=== PATIENT | female | born 1950 | race Two or more races ===

== ENCOUNTER 2023-11-14 08:44 | Emergency (ER) | payer OTHER, SELFPAY ==
[2023-11-14 08:57] VITALS: BP 110/59
--- NOTE | 2023-11-14 09:55 | ED.GENMED ---
History of Present Illness
General
Chief Complaint: Abnormal Lab Value
Source: patient
Exam Limitations: none
Time Seen by Provider: 11/14/23 09:46
Nursing documentation reviewed up to this point in time: agreed with
History of Present Illness
History of Present Illness:
Patient is a 73-year-old female who presents to the ER for evaluation. Patient reports several weeks ago she had urinary tract infection symptoms and went to family doctor was put on an antibiotic. Symptoms then came back in 1 week ago she went to
urgent care and was put on additional antibiotic, Macrobid and finished that Thursday, 3 days ago today she does complain of burning with urination and blood in her urine. She denies any abdominal pain. She denies any back pain. She denies any
nausea vomiting fever chills.
No prior history of kidney stone.
She is not on blood thinners.
Review of Systems
Review of Systems
Allergies reviewed?: Yes
All Other Systems: ROS reviewed and negative except as documented in HPI and ROS
Constitutional: Reports no symptoms; Denies fever, fatigue or chills
Respiratory: Reports no symptoms
Cardiac: Reports no symptoms
ABD/GI: Denies abdominal pain, nausea, vomiting or diarrhea
: Reports dysuria and bleeding; Denies urgency
Musculoskeletal: Reports no symptoms; Denies back pain
Skin: Reports no symptoms
Neurological: Reports no symptoms
Psychiatric: Reports no symptoms
Phy Exam
General Physical Exam
General Presentation: no apparent distress
General age: appears stated age
General Skin: warm and dry
General Habitus: normal
General Mental: alert
General Hydration: appears well hydrated
ENT Exam
ENT Exam: EOMI
Gastrointestinal Exam
Gastrointestinal Exam: normal bowel sounds, non tender and soft
Neurological Exam
Neurological Exam: alert and oriented x3
Musculoskeletal Exam
Musculoskeletal Exam: full ROM and other (no cva tenderness)
Skin Exam
Skin Exam: normal color and warm/dry
Psychiatric Exam
Psychiatric Exam: normal mood/affect
Course
Orders/Labs/Results
Orders:
Orders
11/14/23 09:37
Urinalysis Reflex To Culture Urgent
Date Specimen was Collected: 11/14/23
Time Specimen was Collected: 09:34
Urine Microscopic Reflex Cult Urgent
Urine Culture Urgent
ALTHEA Source: U
Specimen Description:
Date Specimen was Collected: 11/14/23
Time Specimen was Collected: 09:34
11/14/23 10:01
IV Insert/Care/Rem.- Treatment PRN
11/14/23 10:15
Complete Blood Count/With Diff Urgent
Comprehensive Metabolic Panel Urgent
11/14/23 10:40
Renal & Bladder US [US Renal With Bladder] Urgent
Comment:
Reason For Exam: hematuria persistent
11/14/23 12:59
Cefdinir [Omnicef] 300 mg PO NOW STA
Abnormal Lab Results
11/14/23 11/14/23
09:37 10:15
Glucose 143 H mg/dl
(70-99)
Urine Ketones 1+ A
(Negative)
Ur Occult Blood Reflex 4+ A
(Negative)
Urine Nitrite (Reflex) Positive A
(Negative)
Urine Bilirubin 1+ A
(Negative)
Urine Urobilinogen 2+ A
(Neg - 1+)
Leukocyte Esterase Rfl 2+ A
(Negative)
Urine RBC >100 A /HPF
(0-2)
Urine WBC (Reflex) >100 A /HPF
(0-5)
Urine Bacteria (Reflex) Many A
(Negative)
Urine Albumin (Reflex) 3+ A
(Neg - Trace)
11/14/23 10:15
11/14/23 10:15
Vital Signs
Initial and Last Documented VS:
Initial Vital Signs
Temp Pulse Resp BP Pulse Ox
97.5 F 89 18 110/59 97
11/14/23 08:57 11/14/23 08:57 11/14/23 08:57 11/14/23 08:57 11/14/23 08:57
Last Documented Vital Signs
Temp Pulse Resp BP Pulse Ox
98.7 F 84 16 115/64 95
11/14/23 10:27 11/14/23 10:27 11/14/23 10:27 11/14/23 10:27 11/14/23 10:27
MDM/Problems Addressed
Differential Diagnosis Includes:
not limited to UTI
MDM/Problems Addressed:
Patient is a 73-year-old female with persistent dysuria and blood in urine. She was initially on antibiotic prescribed at PCP and then completed Macrobid on Thursday by urgent care. Patient with obvious RBCs and white blood cells in urine along
with nitrates. Ultrasound done does show small bit of echogenic debris within the bladder could represent blood products or hematoma no internal color flow. There is no post residual.
Patient has no back pain does not present like a stone no fever and normal white count. Patient is not on blood thinners. Will treat with cefdinir however with persistent symptoms and hematuria along with white blood cells in urine we will
recommend outpatient referral to urology. I did review this both with patient and .
*Critical Care Note
Total Time (30-74mins, 75-104mins- exclusive of procedures): Not Applicable
ED Attending Note
-
Portions of this chart may have been created with voice recognition software.� Occasional wrong word or��sound alike� substitutions may have occurred due to the inherent limitations of voice recognition software.
Discharge Plan
Departure
Patient Disposition: Home (Routine Discharge)
Date of Disposition: 11/14/23
Time of Disposition: 13:02
Patient with high blood pressure during this ER visit?: No
Condition: Fair
Covid-19: Not Applicable
Discharge Problem:
Acute UTI
Instructions: Urinary Tract Infection, Adult ED
Prescriptions:
New
cefdinir 300 mg capsule
300 mg PO BID Qty: 20 0RF
Referrals:
Dannie Potts MD [Active] -
Leela Olsen MD [Family Provider] -
Activity Restrictions/Additional Instructions:
As discussed a new prescription was sent to your pharmacy for antibiotic take as directed for urinary tract infection. Please call urology Thursday morning for an appointment in the next several days, as soon as possible. Stay well-hydrated. Return
if any worsening of symptoms including abdominal pain nausea vomiting back pain fever chills or worsening bleeding.
Interventions
Interventions:
*Risk Screen - Suicide Last Done: 11/14/23 10:16
*General Assessment Last Done: 11/14/23 10:16
*Neglect/Abuse Screening Last Done: 11/14/23 10:16
ED- Fall Risk Assessment Last Done: 11/14/23 10:16
*ED COVID-19 Vaccine History Last Done: 11/14/23 10:16
Discharge Date and Time
Print Language: OCCITAN
[2023-11-14 10:27] VITALS: BP 115/64
[2023-11-14 10:50] LABS: ALT (SGPT) 26 U/L (0-35); AST (SGOT) 33 U/L (14-36); Albumin 4.2 g/dl (3.5-5.0); Alkaline Phosphatase 53 U/L (38-126); Blood Urea Nitrogen 15 mg/dl (7-17); Calcium 9.6 mg/dl (8.4-10.2); Carbon Dioxide 29 mmol/L (22-30); Chloride 101 mmol/L (98-107); Estimated Creatinine Clearance 40 ml/min; Glucose 143 mg/dl (70-99); Potassium 4.5 mmol/L (3.5-5.1); Sodium 141 mmol/L (135-145); Total Bilirubin 0.8 mg/dl (0.2-1.3); Total Protein 6.6 g/dl (6.3-8.2); eGFR > 60.00
[2023-11-14 10:58] LABS: % Basophils 0.6 % (0-2); % Eosinophils 1.4 % (0-6); % Immature Granulocytes 0.2 % (0-0.5); % Lymphocytes 20.6 % (20.5-51.1); % Monocytes 8.3 % (1.7-9.3); % Neutrophils 68.9 % (42.2-75.2); Absolute Eosinophils 0.1 10^3/uL (0-0.7); Absolute Lymphocytes 1.3 10^3/uL (1.2-3.4); Absolute Monocytes 0.5 10^3/uL (0.1-0.6); Absolute Neutrophils 4.4 10^3/uL (1.4-6.5); Hematocrit 37.5 % (37.0-47.0); Hemoglobin 12.7 g/dL (12.0-16.0); Mean Corp Hgb Conc. 33.9 g/dL (33.0-37.0); Mean Corpuscular Hgb 29.5 pg (27.0-31.0); Mean Corpuscular Volume 87.2 fL (81.0-99.0); Mean Platelet Volume 9.7 fL (7.4-10.4); Nucleated Red Blood Cells % 0 %; Platelet Count 184 10^3/uL (130-400); Red Cell Dist. Width 13.4 % (11.5-14.5); White Blood Cell Count 6.4 10^3/uL (4.8-10.8)
[2023-11-14 10:59] LABS: Urine Albumin 3+ (Neg - Trace); Urine Bilirubin 1+ (Negative); Urine Character Very Cloudy (Clear); Urine Color Brown; Urine Glucose Negative (Negative); Urine Ketone 1+ (Negative); Urine Leukocyte 2+ (Negative); Urine Nitrite Positive (Negative); Urine Occult Blood 4+ (Negative); Urine Urobilinogen 2+ (Neg - 1+); Urine pH 6.5 (5.0-9.0)
[2023-11-14 11:38] LABS: Urine Bacteria Many (Negative); Urine Red Blood Cell >100 /HPF (0-2); Urine White Cell >100 /HPF (0-5)
[2023-11-14 11:39] LABS: Urine Calcium Oxalate Crystals Seen
[2023-11-14] MEDS: OMNICEF 300 MG PO (13:11)
[2023-11-14 13:19] VITALS: BP 115/70
== END 2023-11-14 13:20 | disposition home or self-care (01) ==
LOC: EMR 08:44
PROVIDERS: Emergency Medicine; Nurse Practitioner; EMERGENCY PHYSICIAN Student in an Organized Health Care Education/Training Program; FAMILY PHYSICIAN Internal Medicine
DX: N39.0 Urinary tract infection, site not specified (principal); Z87.440 Personal history of urinary (tract) infections; G20.A1 Parkinson's disease without dyskinesia, without mention of fluctuations; E78.5 Hyperlipidemia, unspecified; K21.9 Gastro-esophageal reflux disease without esophagitis; F41.9 Anxiety disorder, unspecified; E07.9 Disorder of thyroid, unspecified
CPT/HCPCS: 99284; 76770; 80053; 81003; 81015; 85025; 87086